=== PATIENT | male | born 1935 | race Caucasian/White ===

== ENCOUNTER 2017-03-26 19:47 | Observation (INO) | payer MEDICARE, OTHER ==
[~2017-03-26 19:47] MED LIST: ISOVUE-370 76%-LOCM 1 ML ONE
[2017-03-26 20:24] LABS: Hemoglobin 17.2 g/dL (14.0-18.0); Mean Corpuscular HGB CONC 33.8 g/dL (32.0-36.0); Mean Corpuscular Hemoglobin 34.5 pg (27.0-31.0); Mean Platelet Volume 6.6 fL (7.4-10.4); Platelet Count 204 thou/uL (130-400); RBC Distribution Width 11.5 % (11.5-14.5); Red Blood Cell (RBC) Count 4.99 mill/uL (4.70-6.10); White Blood Cell (WBC) Count 9.4 thou/uL (4.8-10.8)
[2017-03-26 20:30] LABS: PTT 29.6 SEC (22.9-36.1); Prothrombin Time 12.9 SEC (12.0-14.7)
[2017-03-26 20:32] LABS: D-Dimer Test 0.85 *mcg/mL (0.27-0.43)
[2017-03-26 20:48] LABS: ALT (SGPT) 13 U/L (8-55); AST (SGOT) 22 U/L (5-34); Albumin 4.5 g/dL (3.4-4.8); Alkaline Phosphatase 94 U/L (40-150); Anion Gap 14 mmol/L (10-20); BUN (Urea Nitrogen) 10 mg/dL (8.4-25.7); Calc. Creatinine Clearance 0 mL/min (70-130); Calcium 9.5 mg/dL (7.8-10.44); Carbon Dioxide 25 mmol/L (23-31); Chloride 100 mmol/L (98-107); Estimated GFR-MDRD Greater than 90; Globulin 2.7 g/dL (2.4-3.5); Glucose 154 mg/dL (83-110); Lipase 12 U/L (8-78); Magnesium 1.9 mg/dL (1.6-2.6); Potassium 3.9 mmol/L (3.5-5.1); Protein, Total 7.2 g/dL (5.8-8.1); Sodium 135 mmol/L (136-145)
[2017-03-26 20:49] LABS: Band 10 % (5-11); Eosinophils 1 % (0-10); Lymphocytes 6 % (21-51); MDiff Complete? YES; Macrocytosis SLIGHT = 6-15 cells (100X) (0-5/hpf); Monocytes 4 % (0-10); Neutrophil 73 % (42-75); PLT Morphology Comment Appears Adequate; Reactive Lymphocytes 4 % (0-10)
[2017-03-26 20:52] LABS: CKMB 1.7 ng/mL (0-6.6); Troponin I Less than 0.010 ng/mL (< 0.028)
[2017-03-26] MEDS ORDERED: diphenhydrAMINE 50 MG/ML VIAL ONE (21:09)
[2017-03-26] MEDS ORDERED: methylPREDNISolone Sod Succ/PF 125 MG/2 ML VIAL ONE (21:09)
[2017-03-26] MEDS ORDERED: Famotidine/PF 20 mg/2ml Vial ONE (21:09)
[2017-03-26] MEDS ORDERED: Water For Inject, Bacteriostat 30 ML ONE (21:09)
[2017-03-26 21:17] LABS: Bilirubin Negative (Negative); Blood, Urine Trace (Negative); Clarity CLEAR (Clear); Glucose, Urine (Dipstick) 250 mg/dL (Negative); Leukocyte Negative (Negative); Nitrite Negative (Negative); Protein, Urine (Dipstick) Negative (Neg-Trace); Urobilinogen 0.2 mg/dL (0.2-1.0); pH, Urine 5.5 (5.0-9.0)
[2017-03-26 21:19] LABS: Bacteria/HPF Rare-Few HPF (None Seen); Hyaline Casts/LPF 0-3 HYALINE CAST LPF (0-3 Hyaline); RBC/HPF 0-3 HPF (0-3); Squamous Epithelial 0-3 HPF (0-3); WBC/HPF 0-3 HPF (0-3)
--- NOTE | 2017-03-26 21:45 | RAD ---
ONE VIEW CHEST 03/26/17 COMPARISON: 11/23/16. HISTORY: Chest pain. FINDINGS: there are sternotomy wires. Normal cardiac silhouette. Pulmonary vessels are within normal limits. Co stophrenic angles are clear. Hyperinflation with chronic changes. No consolidation or mass. No osseou s abnormalities or pneumothorax. IMPRESSION: 1. Atherosclerosis. 2. Hyperinflation with chronic changes. POS: EUN
--- NOTE | 2017-03-27 00:14 | CT ---
CT ANGIOGRAM OF THE CHEST 03/26/17 HISTORY: COPD exacerbation. Chest pain. COMPARISON: None. TECHNIQUE: CT angiogram of the chest is performed in the axial plane. Coronal and oblique three dimensional refo rmatted images are submitted for interpretation. FINDINGS: Extensive emphysematous changes throughout the lung parenchyma. Bullous changes and blebs are noted p redominantly in the upper lobes as well as both lower lobes. Linear opacity is likely to represent ar eas of scarring and atelectasis. A small focal infiltrate versus atelectasis in the left lower lobe c annot be excluded. There is no pneumothorax. No significant pleural fluid. The trachea and central br onchi are patent. There are nonspecific, nonenlarged mediastinal lymph nodes. Heart size is within normal limits. No si gnificant pericardial fluid. There are no coronary artery calcifications. The visualized aorta has an overall normal caliber. No periaortic fat stranding. Visualized upper solid organs are grossly unrem arkable. Evaluation is limited and incomplete. Adequate contrast opacification of the pulmonary arter ial system to the level of the segmental arteries. No evidence of filling defect to suggest thromboem bolism. No lytic or blastic lesions in the osseous structures. IMPRESSION: 1. No evidence of pulmonary artery embolism to the segmental arteries. 2. Emphysematous changes as detailed above. POS: JOHANA
[2017-03-27] MEDS ORDERED: Oseltamivir 75 MG CAP PO SCH ×2 (00:30→09:00)
[2017-03-27 02:43] VITALS: BMI 30.4
[2017-03-27] MEDS ORDERED: Sodium Chloride 0.45% 1,000 ML IV SCH (02:59)
[2017-03-27] MEDS ORDERED: Cepastat Lozenges 1 LOZ PO PRN (03:20)
[2017-03-27 05:41] LABS: Troponin I 0.018 ng/mL (< 0.028)
[2017-03-27 08:33] LABS: Troponin I 0.018 ng/mL (< 0.028)
[2017-03-27] MEDS ORDERED: cefTRIAXone\\ROCEPHIN 1 GM in Sodium Chloride 0.9% 100 ML IVPB SCH (09:39)
[2017-03-27] MEDS ORDERED: hydrALAZINE 20 MG/ML VIAL SLOW IVP PRN (09:39)
[2017-03-27] MEDS ORDERED: Dextrose 50% Abboject 50 ML SYRINGE SLOW IVP PRN (09:39)
[2017-03-27] MEDS ORDERED: Ondansetron HCl/PF 4 MG/2 ML Vial IVP PRN (09:39)
[2017-03-27] MEDS ORDERED: Chloraseptic Spray 180 ml Bottle PO PRN (09:39)
[2017-03-27] MEDS ORDERED: Dextrose 5% in Water 1,000 ML IV PRN (09:39)
[2017-03-27] MEDS ORDERED: Acetaminophen 325 MG TAB PO PRN (09:39)
[2017-03-27] MEDS ORDERED: HumaLOG 300 UNITS/3 ML VIAL SC PRN (09:39)
[2017-03-27] MEDS ORDERED: Benzonatate 100 MG CAP PO PRN (09:39)
[2017-03-27] MEDS ORDERED: Temazepam 15 MG CAP PO PRN (09:39)
--- NOTE | 2017-03-27 10:49 | HP ---
CHIEF COMPLAINT: Shortness of breath. HISTORY OF PRESENT ILLNESS: This is an 81-year-old pleasant gentleman who was apparently in his [facility] state of health, started having some shortness of breath around [place] time which got progressiv tiarra worse with some subjective fever and some chills to the point that he could not hardly talk in fu ll sentences. He called his family who called 911 and he was brought to the hospital for further petey luation and treatment. Initial evaluation revealed that he was flu A positive when he was wheezing. He has been admitted for COPD exacerbation and for treatment of flu. The patient denies any diarrhe a, dysuria or polyuria. 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 The patient also has a left bundle branch block. ALLERGIES: CODEINE and IODINE. SOCIAL HISTORY: Does not smoke, drink or do any recreational drugs right now. FAMILY HISTORY: There are some heart problems in the family. No diabetes or hypertension. MEDICATIONS: Please see MAR. REVIEW OF SYSTEMS: Significant for shortness of breath, cough, subjective fever and chills. Otherwi se, no headache, no eye pain, no hearing loss, or latencies. No diarrhea, dysuria or polyuria. No m david or mood changes. No neck pain. PHYSICAL EXAMINATION: VITAL SIGNS: Blood pressure is 162/72, afebrile 97 right now, right now satting 94 on 2 liters. GENERAL: Patient is lying in bed in no apparent distress. HEENT: Atraumatic and normocephalic. Pupils equal, round, react to light. Extraocular movements in tact. Mucous membranes moist. NECK: Supple. No JVD. CHEST: Some scattered wheezes, but air entry is good. HEART: S1, S2 normal. No murmurs or gallops. ABDOMEN: Soft. EXTREMITIES: No cyanosis, clubbing, edema. Distal pulses present. NEUROLOGIC: Alert, awake, oriented. No cranial deficits. No sensorimotor deficits. LABORATORY DATA: EKG shows sinus tachycardia 108, [place] interval was 120, QRS was 82, QT was 315/420, t he patient has a left bundle branch block. The patient's CT scan of the chest with PE protocol was n egative and showed emphysema. Fluid wave is positive. Troponin is negative. WBC count is 9.4, hemo globin 17, potassium is 3.9, creatinine is 0.7. INR is normal. ASSESSMENT AND PLAN: 1. Shortness of breath secondary to chronic obstructive pulmonary disease exacerbation secondary to flu A and acute bronchitis. The patient will be put on Tamiflu, IV fluids. DuoNeb, IV steroids and IV antibiotics. We will monitor the patient and do the need for symptoms of cough. We will give sym ptomatic treatment with Tessalon Perles and monitor the patient. We will also will do sputum culture . 2. Coronary artery disease status post CABG and recent cardiac catheterization, is doing stable. 3. Diabetes mellitus, put the patient on insulin sliding scale. 4. Hyperlipidemia, stable. 5. Hypertension, stable. 6. Sequential compression devices for deep venous thrombosis prophylaxis. I will follow the labs and do the need for.
[2017-03-27] MEDS ORDERED: cefTRIAXone\\ROCEPHIN 1 GM, Syringe 0.4 ML in Sterile Water 9.6 ML SLOW IVP SCH (11:00)
[2017-03-27 14:49] LABS: Bilirubin Negative (Negative); Blood, Urine Trace (Negative); Clarity CLEAR (Clear); Glucose, Urine (Dipstick) 250 mg/dL (Negative); Leukocyte Negative (Negative); Nitrite Negative (Negative); Protein, Urine (Dipstick) Negative (Neg-Trace); Specific Gravity, Urine 1.015 (1.002-1.036); Urobilinogen 0.2 mg/dL (0.2-1.0)
[2017-03-27 14:51] LABS: Bacteria/HPF None Seen HPF (None Seen); Hyaline Casts/LPF 0-3 HYALINE CAST LPF (0-3 Hyaline); RBC/HPF 0-3 HPF (0-3); Squamous Epithelial None Seen HPF (0-3); WBC/HPF None Seen HPF (0-3)
[2017-03-27] MEDS: Carvedilol 6.25 MG TAB PO SCH (17:01)
[2017-03-27] MEDS: Docusate 100 MG CAP PO SCH (20:16)
[2017-03-27] MEDS: Famotidine 20 MG TAB PO SCH (20:16)
[2017-03-27] MEDS: Lisinopril 20 MG TAB PO SCH (20:16)
[2017-03-28 06:04] LABS: #Lymphocytes 1.5 thou/uL (1.20-3.40); #Monocytes 0.6 thou/uL (0.11-0.59); #Neutrophils 13.4 thou/uL (1.40-6.50); %Basophils 0.1 % (0.0-1.0); %Eosinophils 0.1 % (0.0-10.0); %Lymphocytes 9.9 % (21.0-51.0); %Monocytes 3.8 % (0.0-10.0); %Neutrophils 86.1 % (42.0-75.0); Hemoglobin 15.7 g/dL (14.0-18.0); Mean Corpuscular Hemoglobin 34.7 pg (27.0-31.0); Mean Platelet Volume 7.2 fL (7.4-10.4); Platelet Count 191 thou/uL (130-400); RBC Distribution Width 11.6 % (11.5-14.5); Red Blood Cell (RBC) Count 4.53 mill/uL (4.70-6.10); White Blood Cell (WBC) Count 15.5 thou/uL (4.8-10.8)
[2017-03-28 06:34] LABS: Anion Gap 14 mmol/L (10-20); BUN (Urea Nitrogen) 15 mg/dL (8.4-25.7); Calc. Creatinine Clearance 117 mL/min (70-130); Calcium 9.4 mg/dL (7.8-10.44); Carbon Dioxide 24 mmol/L (23-31); Chloride 103 mmol/L (98-107); Estimated GFR-MDRD Greater than 90; Glucose 147 mg/dL (83-110); Potassium 4.1 mmol/L (3.5-5.1); Sodium 137 mmol/L (136-145)
[2017-03-28 07:57] VITALS: TEMP 97.8
[2017-03-28] MEDS: Lisinopril 20 MG TAB PO SCH (08:53)
[2017-03-28] MEDS: Carvedilol 6.25 MG TAB PO SCH (08:54)
[2017-03-28 08:55] VITALS: BP 144/73
[2017-03-28] MEDS: Docusate 100 MG CAP PO SCH (08:55)
[2017-03-28] MEDS: Famotidine 20 MG TAB PO SCH (08:55)
[2017-03-28] MEDS ORDERED: Azithromycin 250 MG TAB PO SCH (09:00)
[2017-03-28] MEDS ORDERED: Clopidogrel Bisulfate 75 MG TAB PO SCH (09:00)
--- NOTE | 2017-03-28 10:50 | DIS ---
DATE OF ADMISSION: 03/27/2017 DATE OF DISCHARGE: 03/28/2017 DISCHARGE DIAGNOSES: Chronic obstructive pulmonary disease exacerbation secondary to influenza A vir us infection and acute bronchitis, resolved. Coronary artery disease status post coronary artery byp ass graft, stable. Diabetes mellitus, stable. Hyperlipidemia, stable. Hypertension, stable. DISCHARGE MEDICATIONS: Include Tamiflu 75 mg p.o. b.i.d. for 4 more days, Zithromax 500 mg p.o. fidencio y for 7 days, Tessalon Perles 100 mg p.o. q.8 hours p.r.n. for cough, continuation of all other home medications. BRIEF HOSPITAL COURSE: This is an 81-year-old pleasant gentleman who came into the hospital with cruz rtness of breath. Please refer to my H&P for further details. The patient was admitted to the [facility] for observation as he was short of breath secondary to COPD exacerbation secondary to flu A infec tion. He was put on Tamiflu, given some IV fluids, IV steroids and IV antibiotics. He improved with this treatment. Right now, he is medically stable to be discharged with outpatient follow up with luz guerin PCP. He is asked to come back to the emergency room in case symptoms recur. PHYSICAL EXAMINATION: VITAL SIGNS: At the time of discharge, his blood pressure was 144/73. He was afebrile, pulse was 82 , breathing comfortably on room air. GENERAL: Patient is lying in bed in no apparent distress. HEENT: Atraumatic and normocephalic. Pupils are equal, round and reactive to light. Extraocular mo vements intact. Mucous membranes are moist. NECK: Supple. No JVD. CHEST: Breath sounds heard. There are no rales or rhonchi. HEART: S1 and S2. No murmurs or gallops. ABDOMEN: Soft. EXTREMITIES: No cyanosis, clubbing or edema. Distal pulses present. NEUROLOGIC: Alert, awake and oriented. No cranial deficits. No sensorimotor deficits. DISCHARGE CONDITION AND PLAN: The patient right now is medically stable to be discharged. He is ask ed to come back to the emergency room in case symptoms recur. Total time for this discharge took 35 minutes. Of note, the patient also had a CT scan with PE kathi col, which showed emphysema and was negative for PE.
--- NOTE | 2017-04-04 19:30 | EKG ---
Test Reason : STAT Blood Pressure : / mmHG Vent. Rate : 109 BPM Atrial Rate : 111 BPM P-R Int : 000 ms QRS Dur : 144 ms QT Int : 410 ms P-R-T Axes : 000 -46 086 degrees QTc Int : 552 ms Wide QRS rhythm Left axis deviation Left bundle branch block Abnormal ECG When compared with ECG of 23-NOV-2016 08:19, Wide QRS rhythm has replaced Sinus rhythm Vent. rate has increased BY 38 BPM Confirmed by DONATO PANG ([id number]) on 04/04/2017 7:30:07 PM Referred By: AMBIKA Confirmed By:DONATO PANG
--- NOTE | 2017-04-20 22:41 | EKG ---
Test Reason : CHEST PAIN Blood Pressure : / mmHG Vent. Rate : 113 BPM Atrial Rate : 115 BPM P-R Int : 184 ms QRS Dur : 140 ms QT Int : 376 ms P-R-T Axes : 000 009 109 degrees QTc Int : 515 ms Sinus tachycardia Left bundle branch block Abnormal ECG Confirmed by JACQUELIN RODAS ([id number]), science editor TISH HSU ([id number]) on 04/20/2017 10:40:29 PM Referred By: JEM RODAS Confirmed By:JACQUELIN RODAS
--- NOTE | 2017-04-20 22:41 | EKG ---
Test Reason : Blood Pressure : / mmHG Vent. Rate : 119 BPM Atrial Rate : 119 BPM P-R Int : 000 ms QRS Dur : 140 ms QT Int : 354 ms P-R-T Axes : 000 012 095 degrees QTc Int : 497 ms Wide QRS rhythm with Fusion complexes Left bundle branch block Abnormal ECG Confirmed by JACQUELIN RODAS ([id number]), food editor TISH HSU ([id number]) on 04/20/2017 10:40:28 PM Referred By: Confirmed By:JACQUELIN RODAS
--- NOTE | 2017-04-27 16:54 | EKG ---
Test Reason : Blood Pressure : / mmHG Vent. Rate : 123 BPM Atrial Rate : 123 BPM P-R Int : 000 ms QRS Dur : 144 ms QT Int : 376 ms P-R-T Axes : 000 034 089 degrees QTc Int : 538 ms Undetermined rhythm Left bundle branch block Abnormal ECG #[address] elevation Confirmed by JACQUELNI RODAS ([id number]), video effects editor EMILE MORENO ([id number]) on 04/27/2017 4:53:47 PM Referred By: JEM RODAS Confirmed By:JACQUELIN RODAS
== END 2017-03-28 11:16 | disposition home or self-care (01) ==
LOC: ERS 19:47 → 2SW 03-27 01:23
PROVIDERS: ADMIT Internal Medicine; ATTEND Internal Medicine
DX: J10.1 Influenza due to other identified influenza virus with other respiratory manifestations (principal); J44.0 Chronic obstructive pulmonary disease with (acute) lower respiratory infection; J20.9 Acute bronchitis, unspecified; I25.10 Atherosclerotic heart disease of native coronary artery without angina pectoris; E11.9 Type 2 diabetes mellitus without complications; E78.5 Hyperlipidemia, unspecified; I10 Essential (primary) hypertension; I48.92 Unspecified atrial flutter; I44.7 Left bundle-branch block, unspecified; Z88.5 Allergy status to narcotic agent; Z91.041 Radiographic dye allergy status; Z95.1 Presence of aortocoronary bypass graft; Z98.890 Other specified postprocedural states; Z87.891 Personal history of nicotine dependence
CPT/HCPCS: 71045; 71275; 80048; 80053; 81001; 82553; 82962 ×2; 83690; 83735; 83880; 84484 ×2; 85025 ×2; 85379; 85610; 85730; 87070; 87205; 87804 ×2; 93005 ×3; 94640; 94760; 96361 ×2; 96374; 96375 ×2; 96376 ×2; 99291; G0378; 36415; 36416; 81003; 81015; 93010; A4216; J0696; J1200; J2920; J2930; J7620; S0028

== ENCOUNTER 2019-01-19 11:00 | Day surgery (SDC) | payer MEDICARE, OTHER ==
[2019-01-19] MEDS ORDERED: PROPOFOL 20 ML ONE (12:35)
[2019-01-19 12:57] LABS: Anion Gap 13 mmol/L (10-20); BUN (Urea Nitrogen) 15 mg/dL (8.4-25.7); Calc. Creatinine Clearance 0 mL/min (70-130); Calcium 9.7 mg/dL (7.8-10.44); Carbon Dioxide 24 mmol/L (23-31); Chloride 104 mmol/L (98-107); Estimated GFR-MDRD 68; Glucose 111 mg/dL (83-110); Sodium 137 mmol/L (136-145)
--- NOTE | 2019-01-19 15:57 | EKG ---
Test Reason : POST CARDIOVERSION Blood Pressure : / mmHG Vent. Rate : 065 BPM Atrial Rate : 065 BPM P-R Int : 342 ms QRS Dur : 110 ms QT Int : 432 ms P-R-T Axes : 093 -56 047 degrees QTc Int : 449 ms Sinus rhythm with 1st degree A-V block Left axis deviation Incomplete left bundle branch block Septal infarct , age undetermined Abnormal ECG Confirmed by TIERA DE LA ROSA ([id number]) on 01/19/2019 3:57:25 PM Referred By: ESTRELLA Confirmed By:TIERA DE LA ROSA
--- NOTE | 2019-01-20 12:54 | OP ---
DATE OF PROCEDURE: 01/19/2019 PROCEDURE PERFORMED: Transesophageal echo. INDICATIONS FOR PROCEDURE: An 83-year-old gentleman with paroxysmal atrial fibrillation. The patient was taken to the PACU. The patient sedated by Anesthesiology. A transesophageal probe was placed into the distal esophagus and stomach. Echocardiographic images were obtained. The transesophageal probe was removed. FINDINGS: 1. Normal left ventricular systolic function. 2. Left atrial enlargement. 3. Normal mitral aortic valve. 4. Mild mitral regurgitation. 5. Mild tricuspid regurgitation. 6. No formed thrombus in left atrium or left atrial appendage. 7. Atherosclerotic debris in the descending aorta. IMPRESSION: No formed thrombus in the left atrial or left atrial appendage. Job ID: [id number]
--- NOTE | 2019-01-20 12:57 | OP ---
DATE OF PROCEDURE: 01/19/2019 PROCEDURE PERFORMED: Electrocardioversion. INDICATIONS: An 83-year-old gentleman with paroxysmal atrial fibrillation. DESCRIPTION OF PROCEDURE: The patient was taken to the PACU. The patient was sedated by Anesthesiology. The patient was shocked with 200 joules of synchronized electricity. The patient converted to normal sinus rhythm. IMPRESSION: Successful electrocardioversion. Job ID: [id number]
== END 2019-01-19 13:39 | disposition home or self-care (01) ==
LOC: CCL 11:00
PROVIDERS: ATTEND Internal Medicine Cardiovascular Disease
PROC: B246ZZ4 Ultrasonography of Right and Left Heart, Transesophageal (ICD-10-PCS; principal; 2019-01-19)
PROC: 5A2204Z Restoration of Cardiac Rhythm, Single (ICD-10-PCS; 2019-01-19)
DX: I48.0 Paroxysmal atrial fibrillation (principal); I25.10 Atherosclerotic heart disease of native coronary artery without angina pectoris; I08.1 Rheumatic disorders of both mitral and tricuspid valves; I11.0 Hypertensive heart disease with heart failure; I50.32 Chronic diastolic (congestive) heart failure; E66.9 Obesity, unspecified; E78.2 Mixed hyperlipidemia; J44.9 Chronic obstructive pulmonary disease, unspecified; Z68.31 Body mass index [BMI] 31.0-31.9, adult; Z79.01 Long term (current) use of anticoagulants; Z79.82 Long term (current) use of aspirin; Z79.899 Other long term (current) drug therapy; Z88.5 Allergy status to narcotic agent; Z91.041 Radiographic dye allergy status; Z95.1 Presence of aortocoronary bypass graft; Z95.5 Presence of coronary angioplasty implant and graft
CPT/HCPCS: 80048; 92960; 93005; 93010; 93312; J2704

== ENCOUNTER 2019-03-03 18:18 | Inpatient (IN) | payer MEDICARE, OTHER ==
[2019-03-03] MEDS ORDERED: Acetaminophen 325 MG TAB PO PRN (19:43)
[2019-03-03 20:13] VITALS: BMI 32.3
[2019-03-03 20:22] LABS: Anion Gap 10 mmol/L (10-20); BUN (Urea Nitrogen) 13 mg/dL (8.4-25.7); Calc. Creatinine Clearance 101 mL/min (70-130); Calcium 9.5 mg/dL (7.8-10.44); Carbon Dioxide 27 mmol/L (23-31); Chloride 107 mmol/L (98-107); Estimated GFR-MDRD 82; Glucose 85 mg/dL (83-110); Sodium 140 mmol/L (136-145)
[2019-03-03 20:25] LABS: Band 6 % (5-11); Hemoglobin 15.4 g/dL (14.0-18.0); Lymphocytes 10 % (21-51); MDiff Complete? YES; Macrocytosis SLIGHT = 6-15 cells (100X) (0-5/hpf); Mean Corpuscular HGB CONC 34.1 g/dL (32.0-36.0); Mean Corpuscular Hemoglobin 34.1 pg (27.0-31.0); Mean Platelet Volume 7.5 fL (7.4-10.4); Monocytes 11 % (0-10); Neutrophil 41 % (42-75); Platelet Count 191 thou/uL (130-400); Platelet Morphology Comment Appears Adequate; Polychromasia SLIGHT = 2-3 cells (100X) (0-2/hpf); RBC Distribution Width 12.1 % (11.5-14.5); Reactive Lymphocytes 32 % (0-10); Red Blood Cell (RBC) Count 4.51 mill/uL (4.70-6.10); White Blood Cell (WBC) Count 5.8 thou/uL (4.8-10.8)
--- NOTE | 2019-03-03 20:27 | PDOC.EVN ---
Event Note - Event Note Event Note: [id number] HP
[2019-03-03] MEDS: Dofetilide 0.125 MG CAP PO SCH (20:48)
--- NOTE | 2019-03-04 02:21 | HP ---
CHIEF COMPLAINT: Atrial fibrillation. HISTORY OF PRESENT ILLNESS: Mr. Palma is an 83-year-old male with past medical history of COPD, atrial fibrillation, coronary artery disease, hypertension, hyperlipidemia, among others, was sent to the hospital by his cardiac hydrology technician because of persistent atrial fibrillation and to start the patient on Tikosyn. The patient occasionally gets dizziness, lightheaded. The patient uses bronchodilators including albuterol. PAST MEDICAL HISTORY: 1. COPD. 2. Hypertension. 3. Coronary artery disease. 4. Hyperlipidemia. 5. Atrial fibrillation. PAST SURGICAL HISTORY: 1. Bypass surgery. 2. Knee surgery. 3. . FAMILY HISTORY: Reviewed and noncontributory. SOCIAL HISTORY: Former smoker. HOME MEDICATIONS: Please see home medication reconciliation form for updated medications. ALLERGIES: ALLERGIC TO CODEINE, IODINE. REVIEW OF SYSTEMS: Review of 14 systems negative except what is mentioned in history of present illness. PHYSICAL EXAMINATION: GENERAL: The patient is awake, alert, does not appear to be in acute distress. VITAL SIGNS: Blood pressure is 155/86, pulse is 92, respiratory rate is 18, temperature 97.4. HEAD AND NECK: Normocephalic, atraumatic. NECK: Supple. No JVD. CHEST: Fair bilateral air entry. HEART: Irregularly irregular. ABDOMEN: Soft, nontender. Bowel sounds present. NEUROLOGIC: Awake, alert, oriented. No focal deficits. PSYCHIATRIC: Normal mood. EXTREMITIES: No clubbing or cyanosis. LABORATORY DATA: Labs are pending. ASSESSMENT: 1. Atrial fibrillation, persistent. 2. Chronic obstructive pulmonary disease. 3. Hypertension. 4. Coronary artery disease. 5. Hyperlipidemia. PLAN: 1. Admit. 2. Telemetry monitoring. 3. The patient will be started on Tikosyn as per cardiac hydrology technician. 4. Consult Cardiology for evaluation and further management. 5. Reconcile home medications. 6. DVT prophylaxis. Continue home Eliquis. EXPECTED LENGTH OF STAY: At least 1 midnight if the patient is stable and further workup negative and cleared by Cardiology. Job ID: [id number]
[2019-03-04] MEDS ORDERED: Dofetilide 0.125 MG CAP PO SCH ×3 (05:00→11:30)
[2019-03-04] MEDS: Dofetilide 0.125 MG CAP PO SCH ×2 (10:29→21:52)
[2019-03-04] MEDS ORDERED: Dofetilide 0.25 MG CAP PO SCH (10:45)
[2019-03-04] MEDS ORDERED: PROVENTIL INHALER 6.7 G (200 INHALATIONS) INH PRN ×2 (11:31)
[2019-03-04] MEDS ORDERED: (Evolocumab [Repatha Sureclick] 140 MG) SQ SCH (11:45)
--- NOTE | 2019-03-04 12:05 | PRG ---
DATE OF SERVICE: 03/04/2019 SUBJECTIVE: The patient is seen and examined at the bedside. He does not have much complaints to offer. According to the monitoring, he is still in atrial fibrillation, rate is controlled. OBJECTIVE: VITAL SIGNS: Blood pressure is 142/82, pulse is 76, respiratory rate is 20, temperature is 97.7, and O2 saturation is 95% on room air. HEENT: His head is atraumatic and normocephalic. Eyes are PERRLA. Sclerae are nonicteric. Oral mucosa is moist. NECK: Supple. LUNGS: Emphysematous. HEART: S1 and S2, irregular. No S3, no S4. ABDOMEN: Soft, nontender, nondistended. EXTREMITIES: No clubbing, cyanosis, or edema. NEUROLOGICAL: He is alert and oriented x4. There are no any motor deficits. LABORATORY DATA: None today. IMPRESSION: 1. Recurrent atrial fibrillation. 2. Chronic obstructive pulmonary disease. 3. Hypertension. 4. Coronary artery disease. 5. Hyperlipidemia. PLAN: Plan is to continue Tikosyn. Restart his home medications, which include Eliquis. Continue close cardiac monitoring, and palliative senior np will make decision about the next step. If he is still in atrial fibrillation despite of using Tikosyn, he will be cardioverted most likely on or Saturday. Job ID: [id number]
--- NOTE | 2019-03-04 13:55 | PDOC.CPN ---
- Subjective Date: 03/04/19 Time: 13:43 Interval history: EP PROGRESS NOTE: 03/04/19 MR. REYNOSO IS A VERY PLEASANT 83-YEAR-OLD GENTLEMAN WITH A HISTORY OF ADVANCED CHRONIC OBSTRUCTIVE PULMONARY DISEASE, HYPERTENSION, AND CORONARY ARTERY DISEASE WHO NOW HAS PERSISTENT ATRIAL FIBRILLATION, DESPITE RECENT CARDIOVERSION. ADMITTED FOR TIKOSYN LOADING. Feels well, no complaints. - Review of Systems General: denies: fever/chills, weight/appetite/sleep changes, night sweats, fatigue Respiratory: denies: cough, congestion, shortness of breath, exercise intolerance Cardiovascular: denies: chest pain, palpitation, edema, paroxysmal nocturnal dyspnea, orthopnea Gastrointestinal: denies: nausea, vomiting, diarrhea, constipation, abd pain, GI bleeding Musculoskeletal: denies: pain, tenderness, stiffness, swelling, arthritis/ arthralgias Neurological: denies: numbness, syncope, seizure, weakness - Objective Allergies/Adverse Reactions: Allergies Allergy/AdvReac Type Severity Reaction Status Date / Time codeine Allergy Verified 03/27/17 02:44 iodine Allergy Verified 03/27/17 02:44 Iodine and Iodide Containing Allergy Verified 03/27/17 02:44 Produc Visit Medications: Current Medications Acetaminophen (Tylenol) 650 mg PO Q4H PRN PRN Reason: Headache/Fever/Mild Pain (1-3) Albuterol Sulfate (Proventil Hfa) 0 puff INH Q4HR PRN PRN Reason: SOB &/or Wheezing Albuterol Sulfate (Proventil Hfa) 2 puff INH Q6HR PRN PRN Reason: SOB &/or Wheezing Albuterol/Ipratropium (Duoneb) 3 ml NEB QID-RT [facility] Apixaban (Eliquis) 5 mg PO BID [facility] Aspirin (Ecotrin) 81 mg PO DAILY [facility] Diltiazem HCl (Cardizem Cd) 300 mg PO DAILY [facility] Dofetilide (Tikosyn) 0.5 mg PO BID [facility] Furosemide (Lasix) 40 mg PO DAILY [facility] Isosorbide Mononitrate (Imdur) 120 mg PO DAILY [facility] Lisinopril (Zestril) 40 mg PO BID [facility] Mometasone Furoate/Formoterol Fumar (Dulera 200 Mcg/5 Mcg Inhaler) 1 puff INH BID-RT [facility] Mometasone Furoate/Formoterol Fumar (Dulera 200 Mcg/5 Mcg Inhaler) 2 puff INH BID-RT [facility] (Evolocumab [Repatha (Sureclick] 140 Mg)) 140 mg SQ WILLCALL [facility] (Icosapent Ethyl 1 (Gm)) 1 gm PO BID-WM [facility] Potassium Chloride (Klor-Con 10) 10 meq PO DAILY [facility] Ranolazine (Ranexa) 500 mg PO BID [facility] Tamsulosin HCl (Flomax) 0.4 mg PO DAILY [facility] Vital Signs & Weight: Vital Signs Temp Pulse Resp BP Pulse Ox 03/04/19 12:00 97.6 F 96 16 151/98 H 98 03/04/19 07:57 97.7 F 76 20 142/82 H 95 03/04/19 04:00 97.4 F L 86 21 H 136/64 96 Weight 251 lb 8 oz - Physical Exam General: alert & oriented x3, appears well, no apparent distress HEENT: mucus membranes moist, normocephaly Neck: supple neck, midline trachea, no JVD/HJR, no masses, no bruit, no lymphadenopathy, no thromegaly Cardiac: regular rate and rhythm, no murmur, irregularly regular Lungs: clear to auscultation, normal breath sounds, normal exam, no wheeze, rales, rhonchi Neuro: cranial nerve 2-12 intact, grossly intact, motor function intact, sensory function intact, negative rhomberg, coordination normal, no lateralizing findings Abdomen: unremarkable, active bowel sounds, soft, non-tender, no masses, no pulsations/bruits, no hepatosplenomegaly Extremities: no cyanosis, no clubbing, no edema Skin: clear Musculoskeletal: normal range of motion, no pain, no fluid collection - Labs Result Diagrams: 03/03/19 19:57 03/03/19 19:57 - Telemetry Supraventricular conduction: atrial flutter - Assessment/Plan Assessment/Plan: 1. Atrial flutter -tikosyn loading. 50mcg PO BID. QTc ~440msec. Intermittent BBB (QRS 120 pre admission, now 154msec), making QTc appear prolonged. 2. Hypertension 3. COPD 4. chronic OAC -for CVA prophylaxis with AFib - continue Eliquis 5. Chronic Angina - Stopping Ranexa which can contribute to QTc prolongation. QTc stable. Continue Tikosyn 500mcg PO BID. hospitalist to manage medical issues.
[2019-03-04] MEDS ORDERED: Mometasone/Formoterol 120 PUFF INHALER INH SCH (18:30)
[2019-03-04] MEDS: Mometasone/Formoterol 120 PUFF INHALER INH SCH (19:08)
[2019-03-04] MEDS: Apixaban 5 MG TAB PO SCH (20:51)
[2019-03-04] MEDS: Lisinopril 20 MG TAB PO SCH (20:51)
[2019-03-05 05:15] LABS: Anion Gap 11 mmol/L (10-20); BUN (Urea Nitrogen) 12 mg/dL (8.4-25.7); Calc. Creatinine Clearance 104 mL/min (70-130); Carbon Dioxide 23 mmol/L (23-31); Chloride 109 mmol/L (98-107); Estimated GFR-MDRD 84; Glucose 99 mg/dL (83-110); Potassium 3.9 mmol/L (3.5-5.1); Sodium 139 mmol/L (136-145)
--- NOTE | 2019-03-05 07:21 | PDOC.CPN ---
- Subjective Date: 03/05/19 Time: 08:00 Interval history: EP PROGRESS NOTE: 03/05/19 MR. REYNOSO IS A VERY PLEASANT 83-YEAR-OLD GENTLEMAN WITH A HISTORY OF ADVANCED CHRONIC OBSTRUCTIVE PULMONARY DISEASE, HYPERTENSION, AND CORONARY ARTERY DISEASE WHO NOW HAS PERSISTENT ATRIAL FIBRILLATION, DESPITE RECENT CARDIOVERSION. ADMITTED FOR TIKOSYN LOADING. Feels well, no complaints. - Review of Systems General: denies: fever/chills, weight/appetite/sleep changes, night sweats, fatigue Respiratory: denies: cough, congestion, shortness of breath, exercise intolerance Cardiovascular: denies: chest pain, palpitation, edema, paroxysmal nocturnal dyspnea, orthopnea Gastrointestinal: denies: nausea, vomiting, diarrhea, constipation, abd pain, GI bleeding - Objective Allergies/Adverse Reactions: Allergies Allergy/AdvReac Type Severity Reaction Status Date / Time codeine Allergy Verified 03/27/17 02:44 iodine Allergy Verified 03/27/17 02:44 Iodine and Iodide Containing Allergy Verified 03/27/17 02:44 Produc Visit Medications: Current Medications Acetaminophen (Tylenol) 650 mg PO Q4H PRN PRN Reason: Headache/Fever/Mild Pain (1-3) Albuterol Sulfate (Proventil Hfa) 0 puff INH Q4HR PRN PRN Reason: SOB &/or Wheezing Albuterol Sulfate (Proventil Hfa) 2 puff INH Q6HR PRN PRN Reason: SOB &/or Wheezing Albuterol/Ipratropium (Duoneb) 3 ml NEB QID-RT [facility] Last Admin: 03/04/19 18:59 Dose: 3 ml Apixaban (Eliquis) 5 mg PO BID [facility] Last Admin: 03/04/19 20:51 Dose: 5 mg Aspirin (Ecotrin) 81 mg PO DAILY [facility] Diltiazem HCl (Cardizem Cd) 300 mg PO DAILY [facility] Dofetilide (Tikosyn) 0.5 mg PO BID [facility] Last Admin: 03/04/19 21:52 Dose: 0.5 mg Furosemide (Lasix) 40 mg PO DAILY [facility] Isosorbide Mononitrate (Imdur) 120 mg PO DAILY [facility] Lisinopril (Zestril) 40 mg PO BID [facility] Last Admin: 03/04/19 20:51 Dose: 40 mg Mometasone Furoate/Formoterol Fumar (Dulera 200 Mcg/5 Mcg Inhaler) 1 puff INH BID-RT [facility] Last Admin: 03/04/19 19:08 Dose: 1 puff (Evolocumab [Repatha (Sureclick] 140 Mg)) 140 mg SQ WILLCALL [facility] (Icosapent Ethyl 1 (Gm)) 1 gm PO BID-WM [facility] Potassium Chloride (Klor-Con 10) 10 meq PO DAILY [facility] Tamsulosin HCl (Flomax) 0.4 mg PO DAILY [facility] Vital Signs & Weight: Vital Signs Temp Pulse Resp BP Pulse Ox 03/05/19 03:09 97.8 F 87 18 142/86 H 95 03/04/19 19:30 98.6 F 98 18 148/79 H 94 L Weight 251 lb 8 oz - Physical Exam General: alert & oriented x3, appears well, no apparent distress Neck: supple neck, midline trachea, no JVD/HJR, no masses, no bruit, no lymphadenopathy, no thromegaly Cardiac: no murmur, irregularly regular Lungs: clear to auscultation, normal breath sounds, normal exam, no wheeze, rales, rhonchi Neuro: cranial nerve 2-12 intact, grossly intact, motor function intact, sensory function intact, negative rhomberg, coordination normal, no lateralizing findings - Labs Result Diagrams: 03/03/19 19:57 03/05/19 04:14 - Telemetry Supraventricular conduction: atrial flutter - Assessment/Plan Assessment/Plan: . Atrial flutter -tikosyn loading. 50mcg PO BID. QTc ~440msec. -Intermittent BBB (QRS 120 pre admission, 03/04 was 154msec), making QTc appear prolonged with his widened QRS. 2. Hypertension 3. COPD 4. chronic OAC -for CVA prophylaxis with AFib - continue Eliquis 5. Chronic Angina - Stopping Ranexa which can contribute to QTc prolongation. QTc remains stable (446 after 12/12 AM dose). Continue Tikosyn 500mcg PO BID. hospitalist to manage medical issues. Plan for DOROTA/DCCV tomorrow with Dr Dean then likely discharge afterwards, if does not spontaneously convert by then. Unfortunately, his Eliquis was not continued upon admission and he missed 2 doses of Eliquis so he requires a DOROTA before CV.
[2019-03-05] MEDS: Mometasone/Formoterol 120 PUFF INHALER INH SCH ×2 (07:45→18:55)
[2019-03-05] MEDS: Lisinopril 20 MG TAB PO SCH ×2 (08:39→20:32)
[2019-03-05] MEDS: Dofetilide 0.125 MG CAP PO SCH ×2 (08:39→20:29)
[2019-03-05] MEDS: Potassium Chloride 10 MEQ TAB PO SCH (08:40)
[2019-03-05] MEDS: Furosemide 40 MG TAB PO SCH (08:40)
[2019-03-05] MEDS: Aspirin 81 mg Enteric Coated Tablet PO SCH (08:41)
[2019-03-05] MEDS: Tamsulosin HCl 0.4 MG CAP PO SCH (08:41)
[2019-03-05] MEDS: Apixaban 5 MG TAB PO SCH ×2 (08:41→20:29)
--- NOTE | 2019-03-05 12:02 | PRG ---
DATE OF SERVICE: 03/05/2019 SUBJECTIVE: The patient is still in atrial fibrillation. His rate is relatively well controlled. OBJECTIVE: VITAL SIGNS: Blood pressure is 119/69, pulse is 109, temperature is 98.1, respirations 13, and O2 saturation 94% on room air. HEENT: His head is atraumatic and normocephalic. Eyes are PERRLA. Sclerae are nonicteric. Oral mucosa moist. NECK: Supple. LUNGS: Somewhat emphysematous. HEART: S1 and S2, irregularly irregular. No S3. No S4. ABDOMEN: Soft, nontender, and nondistended. EXTREMITIES: No clubbing, cyanosis, or edema. NEUROLOGIC: He is alert and oriented x4. There are no any motor deficits. LABORATORY DATA: Showed normal chemistry except for chloride, which is 109. IMPRESSION: 1. Recurrent atrial fibrillation. The patient was loaded with Tikosyn and EP Team is following. 2. Chronic obstructive pulmonary disease. 3. Hypertension. 4. Coronary artery disease. 5. Hyperlipidemia. PLAN: I am going to continue his current regimen, which includes Cardizem CD, Tikosyn, lisinopril, isosorbide mononitrate, furosemide, potassium, Flomax, Eliquis, and aspirin. If he does not convert with this regimen, he will have to have DOROTA prior to his cardioversion tomorrow morning. Job ID: [id number]
[2019-03-06] MEDS: Mometasone/Formoterol 120 PUFF INHALER INH SCH (07:26)
[2019-03-06] MEDS: Apixaban 5 MG TAB PO SCH (09:04)
[2019-03-06] MEDS: Potassium Chloride 10 MEQ TAB PO SCH (09:04)
[2019-03-06] MEDS: Tamsulosin HCl 0.4 MG CAP PO SCH (09:04)
[2019-03-06] MEDS: Aspirin 81 mg Enteric Coated Tablet PO SCH (09:04)
[2019-03-06] MEDS: Dofetilide 0.125 MG CAP PO SCH (09:05)
[2019-03-06] MEDS: Lisinopril 20 MG TAB PO SCH (09:05)
[2019-03-06] MEDS: Furosemide 40 MG TAB PO SCH (09:06)
[2019-03-06] MEDS ORDERED: Diltiazem HCl CD 300 mg Capsule PO SCH (09:30)
[2019-03-06 15:58] VITALS: BP 126/57; TEMP 97.7
[2019-03-07] MEDS ORDERED: Diltiazem HCl CD 300 mg Capsule PO SCH (09:00)
== END 2019-03-06 16:07 | disposition home or self-care (01) | DRG 310 ==
LOC: INTOOBSV 18:18 → 2NO 18:18 → OBSVTOIN 03-04 18:19
PROVIDERS: ADMIT Internal Medicine Cardiovascular Disease; ATTEND Internal Medicine Cardiovascular Disease
DX: I48.92 Unspecified atrial flutter (principal); J44.9 Chronic obstructive pulmonary disease, unspecified; I25.10 Atherosclerotic heart disease of native coronary artery without angina pectoris; I10 Essential (primary) hypertension; E78.5 Hyperlipidemia, unspecified; Z98.890 Other specified postprocedural states; Z88.5 Allergy status to narcotic agent; Z91.041 Radiographic dye allergy status; Z87.891 Personal history of nicotine dependence; G89.29 Other chronic pain; I45.4 Nonspecific intraventricular block
CPT/HCPCS: 36415; 80048; 85007; 85027; 93005; 93010; 94640; J7620; J8499